=== PATIENT | male | born 1985 | race Caucasian/White ===

== ENCOUNTER 2018-01-04 17:22 | Emergency (ER) | payer BC ==
[2018-01-04] MEDS ORDERED: Butalb/Acetamin/Caff TAB* 1 TAB PO ONE (18:27)
[2018-01-04 19:20] VITALS: BP 130/77
--- NOTE | 2018-01-04 19:22 | ED ---
Headache - HPI Summary HPI Summary: Pt is a 32 y/o male who presents to [facility] c/o headache. He states at 13:00 today he began to have visual changes and pressure over his right eye, which lasted 30 minutes. This sensation came and went several times over the afternoon. He also states he was working outside and felt weak. Pt reports having migraine with aura in the past, but is usually only last an hour then resolves. He now has no visual changes, but still reports 2/10 discomfort due to pressure behind his right eye. He denies any CP. Pt took Ibuprofen at 16:00. He denies any drugs, alcohol, or smoking. - History Of Current Complaint Chief Complaint: EDHeadache Stated Complaint: BLURRY RT EYE Time Seen by Provider: 01/04/18 18:15 Hx Obtained From: Patient Onset/Duration: Sudden Onset, Started hours ago - 13:00, Resolved Currently Pain Is: Mild Timing: Intermittent, Lasting: - 30 minutes Character: Pressure Location of Headache: Other: - Behind right eye Aggravating Factor: Nothing Allevating Factors: Nothing Associated Signs And Symptoms: Visual Changes - Allergies/Home Medications Allergies/Adverse Reactions: Allergies Allergy/AdvReac Type Severity Reaction Status Date / Time No Known Allergies Allergy Verified 01/04/18 17:30 Home Medications: Home Medications Mometasone NASAL (NF) [Nasonex (NF)] 50 mcg NA DAILY 01/04/18 [History Confirmed 01/04/18] PMH/Surg Hx/FS Hx/Imm Hx Cardiovascular History: Denies: Hx Hypertension Neurological History: Reports: Hx Migraine - with aura - Immunization History Date of Tetanus Vaccine: < 10 years Date of Influenza Vaccine: 4028-7556 Immunizations Up to Date: Yes Infectious Disease History: No Infectious Disease History: Denies: Traveled Outside the [place] in Last 30 Days - Family History Known Family History: Negative: Other - Migraine - Social History Alcohol Use: Occasionally Alcohol Amount: 1-2 times per week Hx Substance Use: No Substance Use Type: Reports: None Hx Tobacco Use: Yes Smoking Status (MU): Former Smoker Review of Systems Positive: Other - Visual changes Negative: Chest Pain Positive: Headache - Pressure behind right eye All Other Systems Reviewed And Are Negative: Yes Physical Exam - Summary Physical Exam Summary: Appearance: Well appearing, no pain distress Skin: warm, dry, reflects adequate perfusion Head/face: normal Eyes: EOMI, NIC ENT: normal Neck: supple, non-tender Respiratory: CTA, breath sounds present Cardiovascular: RRR, pulses symmetrical Abdomen: non-tender, soft Bowel: present Musculoskeletal: normal, strength/ROM intact Neuro: normal, sensory motor intact, A&Ox3 GCS: 15 Triage Information Reviewed: Yes Vital Signs On Initial Exam: Initial Vitals Temp Pulse Resp BP Pulse Ox 98.3 F 67 16 132/85 97 01/04/18 17:25 01/04/18 17:25 01/04/18 17:25 01/04/18 17:25 01/04/18 17:25 Vital Signs Reviewed: Yes Diagnostics - Vital Signs Vital Signs Temp Pulse Resp BP Pulse Ox 01/04/18 19:19 53 16 130/77 99 01/04/18 17:25 98.3 F 67 16 132/85 97 - Laboratory Lab Statement: Any lab studies that have been ordered have been reviewed, and results considered in the medical decision making process. - CT Brain CT CT Interpretation: No Acute Changes - No acute findings. ED physician reviewed radiology report. CT Interpretation Completed By: Radiologist Headache Course/Dx - Course Course Of Treatment: Pt is a 32 y/o male who presents to [facility] c/o headache. He states at 13:00 today he began to have visual changes and pressure over his right eye, which lasted 30 minutes. This sensation came and went several times over the afternoon. He also states he was working outside and felt weak. Pt reports having migraine with aura in the past, but is usually only last an hour then resolves. He now has no visual changes, but still reports 2/10 discomfort due to pressure behind his right eye. A physical exam revealed a GCS of 15. A brain CT was negative. Final dx is headache. Pt will be discharged and is agreeable with this plan. - Diagnoses Differential Diagnosis/HQI/PQRI: Migraine, Sinus Headache, Tension Headache Provider Diagnoses: Headache Discharge - Sign-Out/Discharge Documenting (check all that apply): Patient Departure - Discharge - Discharge Plan Condition: Stable Disposition: HOME Prescriptions: Ibuprofen TAB* [Motrin TAB* 600 MG] 600 mg PO Q8H PRN #20 tab MDD 3 PRN Reason: Pain Patient Education Materials: Acute Headache (ED) Referrals: Shahid Main MD [Primary Care Provider] - 3 Days Additional Instructions: RETURN TO THE ED WITH ANY NEW OR WORSENING SYMPTOMS. - Billing Disposition and Condition Condition: STABLE Disposition: Home - Attestation Statements Document Initiated by Carol: Yes Documenting Scribe: Melonie Post Provider For Whom Carol is Documenting (Include Credential): Miguel Lazo MD Scribguillermo Attestation: Melonie Ramirez, scribed for Miguel Lazo MD on 01/04/18 at 2042. Scribe Documentation Reviewed: Yes Provider Attestation: The documentation as recorded by the Melonie abernathy accurately reflects the service I personally performed and the decisions made by , Miguel Lazo MD
--- NOTE | 2018-01-04 19:49 | RAD ---
EXAM: CT Head Without Intravenous Contrast CLINICAL HISTORY: 32 years old, male; Pain; Headache; Other: BAGLEY TECHNIQUE: Axial computed tomography images of the head/brain without intravenous contrast. All CT scans at this facility use at least one of these dose optimization techniques: automated exposure control; mA and/or kV adjustment per patient size (includes targeted exams where dose is matched to clinical indication); or iterative reconstruction. COMPARISON: No relevant prior studies available. FINDINGS: Brain: No acute hemorrhage, edema, or extraaxial collection. Deutsch white differentiation is maintained throughout the brain. Ventricles: Unremarkable. No ventriculomegaly. Bones/joints: No acute fracture or aggressive osseous lesions Soft tissues: Unremarkable. Sinuses: Mucosal thickening is present in the ethmoid sinuses. No air-fluid levels. Mastoid air cells: Unremarkable as visualized. No mastoid effusion. IMPRESSION: No acute findings.
== END 2018-01-04 20:05 | disposition home or self-care (01) ==
LOC: ED 17:22
DX: R51 Headache (principal); Z87.891 Personal history of nicotine dependence
CPT/HCPCS: 70450; 99282; A9270-GY

== ENCOUNTER 2020-02-25 17:40 | Inpatient (IN) ==
[2020-02-25] MEDS ORDERED: Heparin - STEMI 5,000 UNITS/ML 1 ml VIAL IV ONE ×2 (17:50→17:52)
[2020-02-25 17:59] LABS: ABS Basophils 0.1 10^3/ul (0-0.2); ABS Eosinophils 0.5 10^3/ul (0-0.6); ABS Lymphocytes 3.7 10^3/ul (1.0-4.8); ABS Monocytes 0.9 10^3/ul (0-0.8); ABS Neutrophils 5.6 10^3/ul (1.5-7.7); Eosinophil % 4.5 %; Hematocrit 47 % (42-52); Hemoglobin 16.6 g/dL (14.0-18.0); Lymphocyte % 34.6 %; Mean Corpuscular HGB Conc 35 g/dL (31-36); Mean Corpuscular Hemoglobin 31 pg (27-31); Mean Corpuscular Volume 88 fL (80-94); Mean Platelet Volume 6.7 fL (7.4-10.4); Nucleated Red Blood Cells % 0.1; Platelet Count 652 10^3/uL (150-450); Red Blood Count 5.32 10^6 /uL (4.18-5.48); Red Cell Distribution Width 14 % (10-15); White Blood Count 10.7 10^3/uL (3.5-10.8)
[2020-02-25 18:06] LABS: INR 1.02 (0.82-1.09)
[2020-02-25] MEDS ORDERED: VERAPAMIL 2.5 MG/ML 2 ML VIAL ** 5 mg/2 ml ONE (18:14)
[2020-02-25] MEDS ORDERED: fentaNYL 100 mcg/2 ml 50 MCG/ML VIAL ONE (18:14)
[2020-02-25] MEDS ORDERED: Midazolam 5 mg/5 ml VIAL 1 mg/ml 5 ml VIAL (5 mg) ONE (18:14)
[2020-02-25] MEDS ORDERED: Heparin 1,000 UNIT/ML 10 ml (10,000 UNITS) CATHLAB/DIALYSIS ONE (18:14)
[2020-02-25] MEDS ORDERED: nitroGLYCERIN DRIP 25,000 MCG/250 ML BTL ONE (18:14)
[2020-02-25] MEDS ORDERED: Heparin 2 UNITS/ML 1000 mls 3,000 ML IV ONE (18:14)
[2020-02-25] MEDS ORDERED: Lidocaine 1% VIAL 10 MG/ML VIAL ONE (18:15)
[2020-02-25] MEDS ORDERED: Iohexol 350 (CONTRAST) 200 ML MDV IV ONE ×3 (18:15→19:36)
[2020-02-25 18:25] LABS: ALT 22 U/L (7-52); AST 20 U/L (13-39); Albumin 4.8 g/dL (3.2-5.2); Albumin/Globulin Ratio 1.7 (1-3); Alkaline Phosphatase 58 U/L (34-104); Anion Gap 13 mmol/L (2-11); BUN/Creatinine Ratio 17.7 (8-20); Blood Urea Nitrogen 14 mg/dL (6-24); CO2 Carbon Dioxide 26 mmol/L (22-32); Calcium 10.1 mg/dL (8.6-10.3); Chloride 97 mmol/L (101-111); EGFR African American 134.3 (>60); Globulin 2.8 g/dL (2-4); Glucose 112 mg/dL (70-100); Potassium 2.8 mmol/L (3.5-5.0); Sodium 136 mmol/L (135-145); Total Protein 7.6 g/dL (6.4-8.9)
[2020-02-25 18:29] LABS: Troponin I 0.05 ng/mL (<0.03)
[2020-02-25] MEDS ORDERED: diPHENhydraMINE IV 50 MG/ML 1 ml VIAL (BENADRYL) ONE (18:32)
[2020-02-25] MEDS ORDERED: HYDROmorphone 1 MG/1 ML SYRINGE ONE ×3 (18:36→19:05)
[2020-02-25] MEDS ORDERED: Adenosine 3 MG/ML 2 ml VIAL (6 mg) ONE (18:51)
[2020-02-25] MEDS ORDERED: Heparin 2 UNITS/ML 1000 mls 1,000 ML IV ONE (19:08)
[2020-02-25] MEDS ORDERED: NitroPRUSSide 25 mg/ml 2 ml VIAL (50 mg) IV ONE (19:19)
[2020-02-25] MEDS ORDERED: KCL 10 MEQ/50 ML IVPREMIX 10 MEQ/50 ML BAG ONE (19:30)
[2020-02-25] MEDS ORDERED: NS 0.9% 1000 ml BAG 1,000 ML IV SCH (21:30)
[2020-02-25 21:58] LABS: Hematocrit 42 % (42-52); Hemoglobin 14.6 g/dL (14.0-18.0); Mean Corpuscular HGB Conc 35 g/dL (31-36); Mean Corpuscular Hemoglobin 31 pg (27-31); Mean Corpuscular Volume 90 fL (80-94); Mean Platelet Volume 6.8 fL (7.4-10.4); Platelet Count 467 10^3/uL (150-450); Red Blood Count 4.66 10^6 /uL (4.18-5.48); Red Cell Distribution Width 14 % (10-15); White Blood Count 13.9 10^3/uL (3.5-10.8)
[2020-02-25 22:18] LABS: CKMB ng/mL 74.4 ng/mL (0.6-6.3)
[2020-02-25 22:21] LABS: Creatine Kinase 578 U/L (10-223); LDL Cholesterol Direct 105 mg/dL
[2020-02-25 22:26] LABS: Troponin I 3.88 ng/mL (<0.03)
[2020-02-25 22:50] LABS: Anion Gap 10 mmol/L (2-11); CO2 Carbon Dioxide 20 mmol/L (22-32); Calcium 8.5 mg/dL (8.6-10.3); Chloride 101 mmol/L (101-111); Potassium 3.9 mmol/L (3.5-5.0); Sodium 131 mmol/L (135-145)
[2020-02-25 22:55] LABS: BUN/Creatinine Ratio 16.9 (8-20); Blood Urea Nitrogen 11 mg/dL (6-24); EGFR African American 168.2 (>60); Glucose 112 mg/dL (70-100)
[2020-02-26 01:03] LABS: Troponin I 15.38 ng/mL (<0.03)
[2020-02-26 03:52] LABS: ABS Eosinophils 0.2 10^3/ul (0-0.6); ABS Lymphocytes 1.7 10^3/ul (1.0-4.8); ABS Monocytes 0.9 10^3/ul (0-0.8); ABS Neutrophils 5.5 10^3/ul (1.5-7.7); Eosinophil % 2.2 %; Hematocrit 38 % (42-52); Hemoglobin 13.6 g/dL (14.0-18.0); Lymphocyte % 20.2 %; Mean Corpuscular HGB Conc 36 g/dL (31-36); Mean Corpuscular Hemoglobin 32 pg (27-31); Mean Corpuscular Volume 89 fL (80-94); Mean Platelet Volume 6.7 fL (7.4-10.4); Nucleated Red Blood Cells % 0.1; Platelet Count 416 10^3/uL (150-450); Red Blood Count 4.29 10^6 /uL (4.18-5.48); Red Cell Distribution Width 13 % (10-15); White Blood Count 8.3 10^3/uL (3.5-10.8)
[2020-02-26 04:07] LABS: Anion Gap 3 mmol/L (2-11); Blood Urea Nitrogen 13 mg/dL (6-24); CO2 Carbon Dioxide 27 mmol/L (22-32); Chloride 107 mmol/L (101-111); Cholesterol 145 mg/dL; Creatine Kinase 1256 U/L (10-223); EGFR African American 188.1 (>60); EGFR Non-African American 155.4 (>60); Glucose 107 mg/dL (70-100); HDL Cholesterol 42.7 mg/dL; LDL Cholesterol 80 mg/dL; Potassium 3.7 mmol/L (3.5-5.0); Sodium 137 mmol/L (135-145); Triglycerides 112 mg/dL
[2020-02-26 04:25] LABS: Troponin I 28.74 ng/mL (<0.03)
[2020-02-26 11:24] LABS: Creatine Kinase 1215 U/L (10-223)
[2020-02-26 11:28] LABS: Troponin I 19.46 ng/mL (<0.03)
[2020-02-26] MEDS ORDERED: Norepinephrine 16MCG/ML IVPRE 4,000 MCG/250 ML BAG IV ONE (12:42)
[2020-02-27 09:15] LABS: BUN/Creatinine Ratio 21.3 (8-20); EGFR Non-African American 149.6 (>60); Potassium 4.1 mmol/L (3.5-5.0)
[2020-02-28 16:27] VITALS: BP 100/46
== END 2020-02-28 23:38 | disposition home or self-care (01) | DRG 174 ==
LOC: ED 17:40 → CHICATH 18:33 → ICU 21:27 → MEDTELE 02-26 15:14
PROVIDERS: ADMIT Internal Medicine Cardiovascular Disease; ATTEND Internal Medicine Cardiovascular Disease

== ENCOUNTER 2020-06-28 23:10 | Observation (INO) ==
[2020-06-28] MEDS ORDERED: Diltiazem IV push/loading dose 5 MG/ML 5 ML vial (25 mg) IV SLOW PU ONE (23:23)
[2020-06-28] MEDS ORDERED: NS 0.9% 1000 ml BAG 1,000 ML IV ONE (23:23)
[2020-06-28 23:46] LABS: ABS Eosinophils 0.4 10^3/ul (0-0.6); ABS Lymphocytes 3.6 10^3/ul (1.0-4.8); ABS Monocytes 0.9 10^3/ul (0-0.8); ABS Neutrophils 4.1 10^3/ul (1.5-7.7); Eosinophil % 4.3 %; Hematocrit 44 % (42-52); Hemoglobin 15.6 g/dL (14.0-18.0); Lymphocyte % 39.7 %; Mean Corpuscular HGB Conc 36 g/dL (31-36); Mean Corpuscular Hemoglobin 32 pg (27-31); Mean Corpuscular Volume 90 fL (80-94); Mean Platelet Volume 7.2 fL (7.4-10.4); Nucleated Red Blood Cells % 0.1; Platelet Count 532 10^3/uL (150-450); Red Blood Count 4.87 10^6 /uL (4.18-5.48); Red Cell Distribution Width 14 % (10-15)
[2020-06-28 23:54] LABS: Activated Partial Thrombo Time 27.9 seconds (26.0-38.0); INR 0.93 (0.82-1.09)
[2020-06-29] LABS: Urine Appearance Clear; Urine Bilirubin Negative (Negative); Urine Blood 2+ (Negative); Urine Color Straw; Urine Glucose Negative (Negative); Urine Ketones Negative (Negative); Urine Nitrite Negative (Negative); Urine Protein Negative (Negative); Urine Specific Gravity 1.008 (1.010-1.030); Urine Urobilinogen Negative (Negative)
[2020-06-29 00:08] LABS: Urine Bacteria Absent (Absent); Urine Red Blood Cell Trace(0-2/hpf) (Absent); Urine White Blood Cell Absent (Absent)
[2020-06-29 00:09] LABS: Albumin 4.5 g/dL (3.2-5.2); Albumin/Globulin Ratio 1.8 (1-3); BUN/Creatinine Ratio 25.8 (8-20); Calcium 9.2 mg/dL (8.6-10.3); EGFR African American 165.3 (>60); EGFR Non-African American 136.6 (>60); Globulin 2.5 g/dL (2-4); Potassium 3.3 mmol/L (3.5-5.0); Total Bilirubin 1.6 mg/dL (0.2-1.0)
[2020-06-29 00:33] LABS: TSH Ultra Thyroid Stim Horm 3.75 mcIU/mL (0.34-5.60)
[2020-06-29] MEDS ORDERED: Potassium Chlor 10 meq TAB PO ONE (01:10)
[2020-06-29] MEDS ORDERED: Enoxaparin 40 MG/0.4 ML SYR SUBCUT SCH (04:00)
[2020-06-29 10:06] LABS: ABS Eosinophils 0.2 10^3/ul (0-0.6); ABS Lymphocytes 1.8 10^3/ul (1.0-4.8); ABS Monocytes 0.5 10^3/ul (0-0.8); ABS Neutrophils 3.8 10^3/ul (1.5-7.7); Eosinophil % 3.8 %; Hematocrit 43 % (42-52); Lymphocyte % 28.7 %; Mean Corpuscular HGB Conc 35 g/dL (31-36); Mean Corpuscular Hemoglobin 32 pg (27-31); Mean Corpuscular Volume 90 fL (80-94); Mean Platelet Volume 6.9 fL (7.4-10.4); Nucleated Red Blood Cells % 0.1; Platelet Count 433 10^3/uL (150-450); Red Blood Count 4.75 10^6 /uL (4.18-5.48); Red Cell Distribution Width 13 % (10-15); White Blood Count 6.4 10^3/uL (3.5-10.8)
[2020-06-29 10:24] LABS: BUN/Creatinine Ratio 18.6 (8-20); Calcium 8.8 mg/dL (8.6-10.3); EGFR African American 188.1 (>60); EGFR Non-African American 155.4 (>60); Potassium 3.8 mmol/L (3.5-5.0)
[2020-06-29] MEDS ORDERED: Potassium Chlor 20 meq TAB.ER PO ONE (11:46)
[2020-06-29 12:03] VITALS: BP 114/66
== END 2020-06-29 13:30 | disposition home or self-care (01) ==
LOC: MEDTELE 23:10 → ED 23:10 → MEDTELE 06-29 04:18
PROVIDERS: ADMIT Internal Medicine; ATTEND Internal Medicine